=== PATIENT | male | born 1930 | race African-American/Black ===

== ENCOUNTER 2017-10-30 14:18 | Emergency (ER) | payer MEDICARE, BC ==
[~2017-10-30] VITALS: Ht 180.3 cm; Wt 87.0 kg
[2017-10-30] MEDS ORDERED: PRED2.5T4 PO (14:26)
[2017-10-30] MEDS ORDERED: OLME1TAB30 PO (14:26)
[2017-10-30] MEDS ORDERED: CLOP75TA16 PO (14:26)
[2017-10-30] MEDS ORDERED: ALPR0.25 PO (14:26)
[2017-10-30] MEDS ORDERED: FURO-152 PO (14:26)
[2017-10-30] MEDS ORDERED: TAMS0.4C31 PO (14:26)
[2017-10-30 16:05] VITALS: BP 19/72
[2017-10-30 16:46] LABS: CLARITY URINE CLEAR (CLEAR); COLOR URINE YELLOW (YELLOW); KETONES URINE NEGATIVE (NEGATIVE); LEUKOCYTE ESTERASE URINE NEGATIVE (NEGATIVE); NITRITE URINE NEGATIVE (NEGATIVE); OCCULT BLOOD URINE 2+ (NEGATIVE); PH URINE 7.5 (4.5-8.0); PROTEIN URINE NEGATIVE (NEGATIVE); UROBILINOGEN URINE 0.2 E.U./dL (0.2-1.0)
== END 2017-10-30 18:16 | disposition home or self-care (01) ==
LOC: ER 14:44
DX: R33.9 Retention of urine, unspecified (principal); R35.0 Frequency of micturition; R30.0 Dysuria; J44.0 Chronic obstructive pulmonary disease with (acute) lower respiratory infection; I10 Essential (primary) hypertension; F17.200 Nicotine dependence, unspecified, uncomplicated; Z79.01 Long term (current) use of anticoagulants
CPT/HCPCS: 51702; 81003; 87086; 99284; A4315